=== PATIENT | male | born 1950 | race Caucasian/White ===

== ENCOUNTER 2016-11-30 07:42 | Outpatient (CLI) ==
--- NOTE | 2016-11-30 13:14 | NM ---
EXAM: Whole-body bone scan. HISTORY: Rib and back pain for 7 months. No injury. COMPARISON: None of this type. PROCEDURE: The patient was injected with 26.4 mCi of 99m technetium HDP intravenously. After an alona ropriate interval, whole-body anterior and posterior images were obtained. Additional spot images w ere obtained. FINDINGS: The thoracic and lumbar spine demonstrate age appropriate changes. There are findings comp atible with modest degenerative change involving the lower lumbar spine and mid thoracic spine. The ribcage is normal in appearance. There is increased activity in the sternal angle of Feliz, sternocl avicular joints, AC joints and first costosternal articulations. The pelvic skeleton is normal in ap pearance. The kidneys and bladder demonstrate normal, physiologic activity. The lower extremeties demonstrate age appropriate activity in the major joints. There is modest increased activity in the knees somewhat more pronounced in the medial joint compartments compatible with degenerative osteoar thritis. There is modest increased activity in the ankles and feet also compatible with typical deg enerative change. The upper extremeties demonstrate age appropriate levels of activity in the major joints. The cervical spine demonstrates age appropriate findings. The calvarium and face demonstra te a normal distribution of activity. IMPRESSION: 1. The bone scan demonstrates findings compatible with modest degenerative change involving the lowe r lumbar spine and mid thoracic spine. The rib cage is normal in appearance. Incidental note is ma de of increased activity in the AC joints and sternoclavicular joints and first costosternal articul ations and angle of Feliz, all benign. 2. The examination shows modest degenerative changes in the knees and shoulders. 3. If there is reason to further evaluate the patient for back pain, an MRI examination may be helpf ul.
== END 2016-11-30 07:43 | disposition home or self-care (01) ==
LOC: RAD 07:42
PROVIDERS: ATTEND Internal Medicine
DX: R07.89 Other chest pain (principal); R07.81 Pleurodynia; M54.6 Pain in thoracic spine

== ENCOUNTER 2017-09-23 08:33 | Outpatient (CLI) ==
--- NOTE | 2017-09-24 06:13 | MRI ---
EXAM: Brain MRI with and without contrast. HISTORY: Dizziness. COMPARISON: None. TECHNIQUE: Multiplanar, multisequence MR images were acquired of the brain before and after administ ration of intravenous contrast. FINDINGS: The midline structures are central and the craniocervical junction is unremarkable. The v entricles, sulci and cisterns are enlarged compatible with age related involutional changes. There a re no abnormal extra-axial fluid collections. The brain parenchyma has no restricted diffusion to suggest acute hypoperfusion or infarction. There is a thin band of periventricular T2 hyperintensity and small scattered T2 hyperintensities are prese nt in the supratentorial white matter compatible with minor leukomalacia. There is no abnormal dark gradient echo signal to suggest intracranial hemorrhage. After administration of contrast, no enhanc ing lesions are identified. The corpus callosum has a normal configuration. The pituitary gland is normal in size and has homogeneous contrast enhancement. The infundibulum is midline. There are no intraorbital masses. There has been previous lens surgery bilaterally. Mild mucosal thickening is present in the ethmoid air cells bilaterally. Remainder of the paranasal sinuses, middle ears and mastoids are clear. There is no abnormal contrast enhancement in the product management intern al auditory canals or labyrinthine structures. 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 The left vertebral artery mild ly indents the left ventral medulla and the basilar artery mildly indents the left ventral augustina. The re is also ectasia of the internal carotid artery cavernous segments bilaterally. Flow voids are pre sent in the major intracranial arteries. Dural venous sinuses are patent. There is minor upper cervical facet arthropathy. IMPRESSION: 1. No intracranial mass, hemorrhage or acute cerebral infarct. 2. Age related involutional changes and minor leukomalacia likely due to chronic ischemic small vess el disease.
== END 2017-09-23 08:34 | disposition home or self-care (01) ==
LOC: RAD 08:33
PROVIDERS: ATTEND Internal Medicine
DX: R42 Dizziness and giddiness (principal)

== ENCOUNTER 2018-09-14 11:52 | Outpatient (CLI) | payer OTHER ==
--- NOTE | 2018-09-14 12:59 | US ---
EXAM: Scrotal ultrasound. History: Left testicular pain and swelling. Technique: Multiple sonographic images through the scrotum were obtained. Color duplex Doppler was used to interrogate vascular flow. Findings: The right testicle measures 3.5 cm x 2.3 cm x 3.0 cm. Blood flow was documented within the right nilton ticle. No right intratesticular masses are identified. Right epididymis is not hyperemic. The left testicle measures 3.8 cm x 1.6 cm x 2.3 cm. Blood flow is documented within the left testic le. No left intratesticular masses are identified. The left epididymis is not hyperemic. Severe left varicocele. Small bilateral hydroceles. Impression: 1. Normal bilateral testicles. 2. Severe left varicocele
== END 2018-09-14 11:53 | disposition home or self-care (01) ==
LOC: RAD 11:52
PROVIDERS: ATTEND Internal Medicine
DX: N50.82 Scrotal pain (principal); N50.89 Other specified disorders of the male genital organs